=== PATIENT | male | born 1995 | race African-American/Black ===

== ENCOUNTER 2018-07-11 13:03 | Emergency (ER) | payer SELFPAY | END 2018-07-11 14:43 | disposition home or self-care (01) | LOC: ERS 13:03 | DX: B34.9 Viral infection, unspecified (principal) | CPT/HCPCS: 87804; 99283 ==

== ENCOUNTER 2019-09-25 17:05 | Emergency (ER) | payer SELFPAY ==
[2019-09-25] MEDS ORDERED: Lidocaine 1% w/Epinephrine 1:100K 20 ML VIAL ONE (19:06)
[2019-09-25] MEDS ORDERED: Adacel (T-DAP) 0.5 ML SYRINGE ONE (19:06)
== END 2019-09-25 20:29 | disposition home or self-care (01) ==
LOC: ERS 17:05
DX: S01.112A Laceration without foreign body of left eyelid and periocular area, initial encounter (principal); J30.2 Other seasonal allergic rhinitis; W20.8XXA Other cause of strike by thrown, projected or falling object, initial encounter
CPT/HCPCS: 12011; 90471; 90715

== ENCOUNTER 2019-11-18 14:12 | Emergency (ER) | payer OTHER, SELFPAY ==
[2019-11-19 13:44] LABS: SARS-CoV-2 MS2 Positive; SARS-CoV-2 N Gene Negative; SARS-CoV-2 S Gene Negative; SARS-CoV-2 orf1ab Negative
== END 2019-11-18 14:50 | disposition home or self-care (01) ==
LOC: ERS 14:12
DX: Z20.828 Contact with and (suspected) exposure to other viral communicable diseases (principal)
CPT/HCPCS: 87635; 99283; U0003

== ENCOUNTER 2020-08-08 18:36 | Emergency (ER) | payer SELFPAY ==
[2020-08-08] MEDS ORDERED: Ketorolac Tromethamine 30 MG/ML VIAL ONE (19:55)
[2020-08-09 00:24] LABS: SARS-CoV-2 PCR by NAA Not Detected (NotDetected)
== END 2020-08-08 20:02 | disposition home or self-care (01) ==
LOC: ERS 18:36
DX: B34.9 Viral infection, unspecified (principal); Z20.822 Contact with and (suspected) exposure to COVID-19
CPT/HCPCS: 87635; 87804; 96372; 99283; J1885; U0003; U0005

== ENCOUNTER 2020-09-04 10:42 | Emergency (ER) | payer SELFPAY ==
[2020-09-04] MEDS ORDERED: Ketorolac Tromethamine 30 MG/ML VIAL ONE (12:06)
== END 2020-09-04 12:46 | disposition home or self-care (01) ==
LOC: ERS 10:42
DX: S39.012A Strain of muscle, fascia and tendon of lower back, initial encounter (principal); F17.210 Nicotine dependence, cigarettes, uncomplicated
CPT/HCPCS: 72100; 93005; 96372; J1885

== ENCOUNTER 2021-01-23 11:36 | Emergency (ER) | payer SELFPAY ==
[2021-01-23 18:15] LABS: SARS-CoV-2 PCR by NAA Not Detected (NotDetected)
== END 2021-01-23 12:04 | disposition home or self-care (01) ==
LOC: ERS 11:36
DX: Z20.822 Contact with and (suspected) exposure to COVID-19 (principal); F17.210 Nicotine dependence, cigarettes, uncomplicated
CPT/HCPCS: 99283; U0003; U0005

== ENCOUNTER 2025-03-03 08:53 | Emergency (ER) | payer SELFPAY ==
[2025-03-03] MEDS ORDERED: Acetaminophen 500 MG TAB ONE (10:20)
[2025-03-03] MEDS ORDERED: diphenhydrAMINE 50 MG/ML VIAL ONE (10:20)
[2025-03-03] MEDS ORDERED: Metoclopramide HCl 10 MG (2 mL) VIAL ONE (10:21)
[2025-03-03] MEDS ORDERED: Iopamidol-370 76% 500 ML MDV (1 ML CHARGE) ONE (11:11)
== END 2025-03-03 12:19 | disposition home or self-care (01) ==
LOC: ERS 08:53
DX: S70.02XA Contusion of left hip, initial encounter (principal); G43.009 Migraine without aura, not intractable, without status migrainosus; V89.2XXA Person injured in unspecified motor-vehicle accident, traffic, initial encounter
CPT/HCPCS: 70450; 72125; 74177; 96365; 96375; J1200; J2765; Q9967